=== PATIENT | female | born 1965 | race Two or more races ===

== ENCOUNTER 2017-10-26 10:35 | Emergency (ER) | payer MEDICAID, OTHER ==
[~2017-10-26] VITALS: Ht 162.6 cm; Wt 60.8 kg
[2017-10-26 11:03] VITALS: BP 117/70
[2017-10-26 13:02] LABS: Urine Bacteria FEW /hpf (None Seen); Urine Blood 2+ /uL (Negative); Urine Mucus FEW (None Seen); Urine Specific Gravity 1.022 (1.001-1.035); Urine WBC 72 /hpf (0 - 5)
[2017-10-26] MEDS: PHENAZOPYRIDINE HCL 100 MG TAB PO ONE (14:32)
== END 2017-10-26 14:41 | disposition home or self-care (01) ==
LOC: ER 10:35
DX: N39.0 Urinary tract infection, site not specified (principal)
CPT/HCPCS: 81001

== ENCOUNTER 2019-08-21 08:34 | Emergency (ER) | payer OTHER ==
[~2019-08-21] VITALS: Ht 162.6 cm; Wt 51.3 kg
[2019-08-21] MEDS ORDERED: KETOROLAC TROMETH 60MG/2ML VIAL IM ONE (09:15)
[2019-08-21 09:30] LABS: Basophils # (auto) 0 uL; Basophils % (auto) 0.8 % (0.0-2.0); Eosinophils # (auto) 0.1 uL; Eosinophils % (auto) 1.3 % (0.0-7.0); Lymphocytes # (auto) 1.3 uL; Lymphocytes % (auto) 29.4 % (10.0-50.0); Mean Corpuscular Hemoglobin 30.1 pg (28.0-32.0); Mean Corpuscular Hgb Conc. 33.3 g/dL (32.0-36.0); Mean Corpuscular Volume 90.2 fL (80.0-100.0); Monocytes # (auto) 0.4 uL; Monocytes % (auto) 8.2 % (0.0-12.0); Neutrophils # (auto) 2.7 uL; Neutrophils % (auto) 60.3 % (37.0-80.0); Nucleated Red Blood Cells % 0.1 %; Platelet Count (auto) 193 10^3/uL (140-450); Red Blood Cells 4.32 10^6/uL (4.0-5.20); Red Cell Distribution Width 15.3 % (11.8-14.3); White Blood Cell 4.4 10^3/uL (4.4-10.8)
[2019-08-21 09:48] LABS: Calcium 9.3 mg/dL (8.5-10.1); Potassium 3.6 mmol/L (3.5-5.1)
[2019-08-21 09:52] LABS: BUN/Creatinine Ratio 14.9; Bilirubin, Total 0.5 mg/dL (0.2-1.0); Total Protein 7.6 g/dL (6.4-8.2)
[2019-08-21 10:54] LABS: Urine Bacteria FEW /hpf (None Seen); Urine Blood 1+ /uL (Negative); Urine Mucus FEW (None Seen); Urine Specific Gravity 1.006 (1.001-1.035); Urine WBC 31 /hpf (0 - 5)
[2019-08-21 14:40] VITALS: BP 121/69
== END 2019-08-21 14:57 | disposition home or self-care (01) ==
LOC: ER 08:39
DX: N39.0 Urinary tract infection, site not specified (principal); M79.10 Myalgia, unspecified site; R07.81 Pleurodynia
CPT/HCPCS: 36415; 71046; 80053; 81001; 85025; 96372; 99284; J1885

== ENCOUNTER 2020-11-01 11:27 | Emergency (ER) | payer OTHER ==
[~2020-11-01] VITALS: Ht 162.6 cm; Wt 63.5 kg
[2020-11-01 11:27] VITALS: BP 144/74
[2020-11-01] MEDS ORDERED: PHENAZOPYRIDINE HCL 100 MG TAB PO ONE (12:00)
[2020-11-01 12:02] LABS: Urine Bacteria NONE SEEN /hpf (None Seen); Urine Blood 2+ /uL (Negative); Urine Mucus FEW (None Seen); Urine Specific Gravity 1.025 (1.001-1.035); Urine WBC 28 /hpf (0 - 5)
== END 2020-11-01 12:26 | disposition home or self-care (01) ==
LOC: ER 11:27
DX: N30.00 Acute cystitis without hematuria (principal)
CPT/HCPCS: 81001; 93005

== ENCOUNTER 2020-11-14 09:22 | Emergency (ER) | payer OTHER ==
[~2020-11-14] VITALS: Ht 162.6 cm; Wt 63.5 kg
[2020-11-14 10:20] LABS: Urine Bacteria NONE SEEN /hpf (None Seen); Urine Blood 2+ /uL (Negative); Urine Mucus FEW (None Seen); Urine Specific Gravity 1.028 (1.001-1.035); Urine WBC 14 /hpf (0 - 5)
[2020-11-14] MEDS ORDERED: cefTRIAXone SOD 1,000 MG VL IM ONE (11:00)
[2020-11-14] MEDS ORDERED: PHENAZOPYRIDINE HCL 100 MG TAB PO ONE (11:00)
[2020-11-14 11:17] VITALS: BP 154/64
== END 2020-11-14 11:30 | disposition home or self-care (01) ==
LOC: ER 09:22
DX: N39.0 Urinary tract infection, site not specified (principal); F41.9 Anxiety disorder, unspecified
CPT/HCPCS: 81001; 96372; 99283; J0696

== ENCOUNTER 2020-12-21 17:37 | Emergency (ER) | payer OTHER ==
[~2020-12-21] VITALS: Ht 162.6 cm; Wt 72.6 kg
[2020-12-21 17:40] VITALS: BP 132/54
[2020-12-21] MEDS ORDERED: ACETAMINOPHEN 325 MG TAB PO ONE (18:45)
[2020-12-21] MEDS ORDERED: levETIRAcetam 500 MG TAB PO ONE (20:00)
== END 2020-12-21 20:15 | disposition home or self-care (01) ==
LOC: EDBD 17:37 → ER 17:42
DX: S16.1XXA Strain of muscle, fascia and tendon at neck level, initial encounter (principal); S09.8XXA Other specified injuries of head, initial encounter; R51.9 Headache, unspecified; F41.9 Anxiety disorder, unspecified; V49.49XA Driver injured in collision with other motor vehicles in traffic accident, initial encounter; Y93.89 Activity, other specified; Y92.488 Other paved roadways as the place of occurrence of the external cause; Y99.8 Other external cause status
CPT/HCPCS: 72040

== ENCOUNTER 2021-05-07 12:10 | Emergency (ER) | payer OTHER ==
[~2021-05-07] VITALS: Ht 162.6 cm; Wt 63.5 kg
[2021-05-07 13:37] VITALS: BP 137/70
== END 2021-05-07 14:04 | disposition home or self-care (01) ==
LOC: ER 12:10
DX: J02.9 Acute pharyngitis, unspecified (principal)

== ENCOUNTER 2021-05-19 10:39 | Emergency (ER) | payer OTHER ==
[~2021-05-19] VITALS: Ht 162.6 cm; Wt 63.5 kg
[2021-05-19 10:55] VITALS: BP 145/70
[2021-05-19 12:13] LABS: Urine Bacteria NONE SEEN /hpf (None Seen); Urine Blood 2+ /uL (Negative); Urine Mucus FEW (None Seen); Urine Specific Gravity 1.034 (1.001-1.035); Urine WBC 3 /hpf (0 - 5)
[2021-05-19] MEDS ORDERED: cefTRIAXone SOD 1,000 MG VL IM ONE (13:15)
[2021-05-19] MEDS ORDERED: methylPREDNISolone SOD SUCC 125 MG/2 ML VL IM ONE (13:15)
== END 2021-05-19 13:59 | disposition home or self-care (01) ==
LOC: ER 10:39
DX: N39.0 Urinary tract infection, site not specified (principal); J02.9 Acute pharyngitis, unspecified; F41.9 Anxiety disorder, unspecified; R59.0 Localized enlarged lymph nodes
CPT/HCPCS: 81001; 96372; 99284; J0696; J2930

== ENCOUNTER 2021-12-07 08:16 | Emergency (ER) | payer OTHER ==
[~2021-12-07] VITALS: Ht 162.6 cm; Wt 65.8 kg
[2021-12-07] MEDS ORDERED: IBUP800T26 PO (11:06)
[2021-12-07] MEDS ORDERED: BACL10TA PO (11:06)
[2021-12-07 11:29] VITALS: BP 141/88
[2021-12-07] MEDS ORDERED: KETOROLAC TROMETH 60MG/2ML VIAL IM ONE (12:00)
[2021-12-07] MEDS ORDERED: AMOX500C2 PO (12:00)
[2021-12-07] MEDS ORDERED: cefTRIAXone SOD 1,000 MG VL IM ONE (12:00)
== END 2021-12-07 12:22 | disposition home or self-care (01) ==
LOC: ER 08:16
DX: H91.90 Unspecified hearing loss, unspecified ear (principal); M79.601 Pain in right arm; Z79.1 Long term (current) use of non-steroidal anti-inflammatories (NSAID); Z79.899 Other long term (current) drug therapy
CPT/HCPCS: 70450; 73030; 96372; 99284; J0696; J1885

== ENCOUNTER 2022-01-31 09:57 | Emergency (ER) | payer OTHER ==
[~2022-01-31] VITALS: Ht 162.6 cm; Wt 65.8 kg
[~2022-01-31 09:57] MED LIST: AMOX500C2 PO; BACL10TA PO; IBUP800T26 PO
[2022-01-31 10:45] LABS: Urine Bacteria FEW /hpf (None Seen); Urine Blood 2+ /uL (Negative); Urine Mucus FEW (None Seen); Urine Specific Gravity 1.027 (1.001-1.035); Urine WBC 4 /hpf (0 - 5)
[2022-01-31 12:06] VITALS: BP 138/70
[2022-01-31] MEDS ORDERED: SULF800T7 PO (12:11)
[2022-01-31] MEDS ORDERED: ACET-1158 PO (12:11)
[2022-01-31] MEDS ORDERED: cefTRIAXone SOD 1,000 MG VL IM ONE (12:30)
== END 2022-01-31 12:46 | disposition home or self-care (01) ==
LOC: ER 09:57
DX: N39.0 Urinary tract infection, site not specified (principal); Z79.2 Long term (current) use of antibiotics; Z79.1 Long term (current) use of non-steroidal anti-inflammatories (NSAID); Z79.899 Other long term (current) drug therapy; Z88.1 Allergy status to other antibiotic agents
CPT/HCPCS: 81001; 87086; 99283; J0696

== ENCOUNTER 2022-03-25 09:17 | Emergency (ER) | payer OTHER ==
[~2022-03-25] VITALS: Ht 162.6 cm; Wt 62.3 kg
[~2022-03-25 09:17] MED LIST changes: +ACET-1158 PO; +SULF800T7 PO
[2022-03-25 09:33] VITALS: BP 152/79
[2022-03-25 09:59] LABS: Urine Bacteria FEW /hpf (None Seen); Urine Blood 2+ /uL (Negative); Urine Mucus FEW (None Seen); Urine Specific Gravity 1.033 (1.001-1.035); Urine WBC 3 /hpf (0 - 5)
[2022-03-25] MEDS ORDERED: PHEN200T16 PO (10:33)
[2022-03-25] MEDS ORDERED: SULF400T11 PO (10:33)
== END 2022-03-25 10:37 | disposition home or self-care (01) ==
LOC: ER 09:17
DX: N39.0 Urinary tract infection, site not specified (principal); Z79.899 Other long term (current) drug therapy; Z79.1 Long term (current) use of non-steroidal anti-inflammatories (NSAID); Z88.1 Allergy status to other antibiotic agents
CPT/HCPCS: 81001

== ENCOUNTER 2022-04-23 10:47 | Emergency (ER) | payer OTHER ==
[~2022-04-23] VITALS: Ht 162.6 cm; Wt 62.0 kg
[~2022-04-23 10:47] MED LIST changes: +PHEN200T16 PO; +SULF400T11 PO
[2022-04-23 11:35] VITALS: BP 133/72
[2022-04-23 11:46] LABS: Urine Bacteria NONE SEEN /hpf (None Seen); Urine Blood 2+ /uL (Negative); Urine Mucus FEW (None Seen); Urine Specific Gravity 1.021 (1.001-1.035); Urine WBC 2 /hpf (0 - 5)
[2022-04-23] MEDS ORDERED: KETOROLAC TROMETH 60MG/2ML VIAL IM ONE (13:45)
[2022-04-23] MEDS ORDERED: METR500T PO (13:46)
[2022-04-23] MEDS ORDERED: CIPR-173 PO (13:46)
[2022-04-23] MEDS ORDERED: IBUP600T27 PO (13:46)
== END 2022-04-23 14:05 | disposition home or self-care (01) ==
LOC: ER 10:47
DX: M48.061 Spinal stenosis, lumbar region without neurogenic claudication (principal); N28.1 Cyst of kidney, acquired; Z88.1 Allergy status to other antibiotic agents
CPT/HCPCS: 74176; 81001; 96372; 99284; J1885

== ENCOUNTER 2022-07-12 11:27 | Emergency (ER) | payer OTHER ==
[~2022-07-12] VITALS: Ht 121.9 cm; Wt 62.0 kg
[~2022-07-12 11:27] MED LIST changes: +CIPR-173 PO; +IBUP600T27 PO; +METR500T PO
[2022-07-12 12:26] VITALS: BP 155/69
[2022-07-12] MEDS ORDERED: CEPH-510 PO ×2 (16:42→16:43)
[2022-07-12] MEDS ORDERED: AZITTAB PO ×2 (16:42→16:43)
== END 2022-07-12 18:28 | disposition home or self-care (01) ==
LOC: ER 11:27
DX: J06.9 Acute upper respiratory infection, unspecified (principal); N39.0 Urinary tract infection, site not specified; Z20.822 Contact with and (suspected) exposure to COVID-19; Z88.1 Allergy status to other antibiotic agents
CPT/HCPCS: 36415; 87426; 87804

== ENCOUNTER 2023-06-08 09:27 | Emergency (ER) | payer OTHER ==
[~2023-06-08] VITALS: Ht 162.6 cm; Wt 58.9 kg
[~2023-06-08 09:27] MED LIST changes: -ACET-1158 PO; +ACET500T58 PO; +AZITTAB PO; +CEPH-510 PO; +IBUP-1454 PO; +IBUP-1455 PO; -IBUP600T27 PO; -IBUP800T26 PO; +PHEN-922 PO; -PHEN200T16 PO; +SULF800T23 PO; -SULF800T7 PO
[2023-06-08 10:36] LABS: Urine Bacteria FEW /hpf (None Seen); Urine Blood 2+ /uL (Negative); Urine Clarity HAZY (Clear); Urine Color Yellow (Yellow); Urine Mucus FEW (None Seen); Urine Protein, UAD 1+ (Negative); Urine Specific Gravity 1.031 (1.001-1.035); Urine Urobilinogen Normal (Negative); Urine WBC 157 /hpf (0 - 5)
[2023-06-08 11:05] LABS: Basophils # (auto) 0 10 ^3/uL (0-0.2); Basophils % (auto) 0.4 % (0.0-2.0); Eosinophils # (auto) 0 10 ^3/uL (0-0.8); Eosinophils % (auto) 0.5 % (0.0-7.0); Hematocrit 41.6 % (36.0-46.0); Lymphocytes # (auto) 1.3 10 ^3/uL (0.4-5.4); Lymphocytes % (auto) 20.6 % (10.0-50.0); Mean Corpuscular Hemoglobin 32.4 pg (28.0-32.0); Mean Corpuscular Hgb Conc. 33.6 g/dL (32.0-36.0); Mean Corpuscular Volume 96.6 fL (80.0-100.0); Monocytes # (auto) 0.5 10 ^3/uL (0-1.3); Monocytes % (auto) 7.7 % (0.0-12.0); Neutrophils # (auto) 4.4 10 ^3/uL (1.6-8.6); Neutrophils % (auto) 70.8 % (37.0-80.0); Nucleated Red Blood Cells % 0.1 %; Red Blood Cells 4.31 10^6/uL (4.0-5.20); Red Cell Distribution Width 13.8 % (11.8-14.3); White Blood Cell 6.2 10^3/uL (4.4-10.8)
[2023-06-08 11:32] LABS: Alanine Aminotransferase 26 U/L (7-40); Albumin 4.4 g/dL (3.2-4.8); Alkaline Phosphatase 79 U/L (46-116); Anion Gap 5 (5-15); Aspartate Aminotransferase 9 U/L (13-40); BUN/Creatinine Ratio 21.2 (10.0-20.0); Blood Urea Nitrogen 18 mg/dL (9-23); Calcium 9.5 mg/dL (8.7-10.4); Carbon Dioxide 28 mmol/L (20-30); Chloride 107 mmol/L (98-107); Glucose 96 mg/dL (74-106); Sodium 140 mmol/L (136-145)
[2023-06-08 11:33] LABS: Bilirubin, Total 0.5 mg/dL (0.2-1.0); Total Protein 6.6 g/dL (5.7-8.2)
[2023-06-08] MEDS ORDERED: BACDST PO (12:08)
[2023-06-08 13:01] VITALS: BP 137/72; PULSE 55; RESP 16; TEMP 97.6; O2SAT 95
[2023-06-08] MEDS ORDERED: SULF400T11 PO (13:05)
== END 2023-06-08 13:02 | disposition home or self-care (01) ==
LOC: ER 09:27
DX: N39.0 Urinary tract infection, site not specified (principal); G40.909 Epilepsy, unspecified, not intractable, without status epilepticus; F41.9 Anxiety disorder, unspecified; Z88.1 Allergy status to other antibiotic agents; Z79.1 Long term (current) use of non-steroidal anti-inflammatories (NSAID); Z79.899 Other long term (current) drug therapy
CPT/HCPCS: 36415; 80053; 81001; 83735; 85025

== ENCOUNTER 2023-07-05 11:52 | Emergency (ER) | payer OTHER ==
[~2023-07-05] VITALS: Ht 162.6 cm; Wt 60.5 kg
[~2023-07-05 11:52] MED LIST changes: +BACDST PO
[2023-07-05 12:25] VITALS: BP 122/68; PULSE 120; RESP 17; O2SAT 97
== END 2023-07-05 13:46 | disposition left against medical advice (07) ==
LOC: ER 11:52
DX: J02.9 Acute pharyngitis, unspecified (principal); Z53.21 Procedure and treatment not carried out due to patient leaving prior to being seen by health care provider

== ENCOUNTER 2025-04-30 10:00 | Emergency (ER) | payer OTHER ==
[~2025-04-30] VITALS: Ht 162.6 cm; Wt 65.0 kg
--- NOTE | 2025-04-30 10:24 | ED.PDOC ---
Back pain HPI HPI Comments 59-year-old female presents to the ER with a chief complaint of back pain. Patient reports on having lower back pain bilaterally for the past three days associated with a bilateral earache and throat pain. Patient states on feeling these symptoms before when she was diagnosed with a UTI. The patient has tried hfur-xuz-bztahev treatments with no improvement. Denies any other symptoms at the moment. Denies history of chronic steroid use or history of osteoporosis Denies history of cancer Denies fevers chills night sweats nausea vomiting unintentional weight loss Denies abdominal tearing pain Denies syncope Denies urinary changes or urinary incontinence Denies numbness tingling of the groin her inner thigh Denies previous back procedures or surgeries Chief Complaint: Back Pain Time Seen by MD: 11:00 Primary Care Provider: RHETT Kam Notes: Nurses Notes, Medications, Allergies Allergies: Coded Allergies: Amoxicillin (Verified Allergy, Unknown, 01/31/22) Home Meds Active Scripts Sulfamethoxazole-Trimethoprim (Bactrim) 1 Tab Tab, 1 TAB PO BID, #20 TAB Prov:MICHAEL SANZ MD 06/08/23 Sulfamethoxazole W/Trimethopri (Bactrim Ds Tablet) 1 Tab Tb, 1 TAB PO BID for 10 Days, #20 TAB Prov:MICHAEL SANZ MD 06/08/23 Cephalexin ( Keflex 500) 500 Mg Cap, 1 CAP PO QID for 7 Days, #28 CAP 0 Refills Prov:JOSH SUN [facility] 07/12/22 Azithromycin (Zithromax Z-John) 250 Mg Tab, 250 MG PO DAILY for 5 Days, #6 TAB 0 Refills Prov:JOSH SUN [facility] 07/12/22 Ibuprofen (Ibuprofen) 600 Mg Tab, 1 TAB PO TID, #30 TAB Prov:CORIE MARTINEZ 04/23/22 Metronidazole (Flagyl) 500 Mg Tab, 500 MG PO BID, #14 TAB Prov:CORIE MARTINEZ 04/23/22 Ciprofloxacin Hcl (Cipro) 500 Mg Tab, 1 TAB PO BID, #14 TAB Prov:CORIE MARTINEZ 04/23/22 Phenazopyridine HCl (Phenazopyridine Hydrochlo) 200 Mg Tab, 200 MG PO TID, #6 TAB Prov:CORIE MARTINEZ 03/25/22 Acetaminophen (Acetaminophen) 500 Mg Tab, 500 MG PO QIDP, #30 TAB 0 Refills Prov:SAPNA CHOUDHURY KAMRAN 01/31/22 Sulfamethoxazole W/Trimethopri (Trimethoprim/Sulfamethoxa) 1 Tab Tab, 1 TAB PO BID for 7 Days, #14 TAB 0 Refills Prov:SAPNA CHOUDHURY KAMRAN 01/31/22 Amoxicillin Trihydrate (Amoxicillin) 500 Mg Cap, 1 CAP PO TID for 10 Days, #30 CAP 0 Refills Prov:LAUREN SMALLP 12/07/21 Ibuprofen Micronized (Ibuprofen) 800 Mg Tab, 800 MG PO Q8HPRN PRN for 10 Days, #30 TAB 0 Refills Prov:LAUREN SMALLP 12/07/21 Baclofen (Baclofen) 10 Mg Tab, 10 MG PO TID PRN for 7 Days, #21 TAB 0 Refills Prov:LAUREN SMALL [facility] 12/07/21 Information Source: Patient Mode of Arrival: Ambulatory Timing: Days Duration: Since onset, Days Severity: Moderate Prehospital treatment: None Quality: Aching Onset: Spontaneous History of: UTI Associated signs and symptoms: None Past Medical History PAST MEDICAL HISTORY: Anxiety, Seizures, UTI'S Surgical History: Denies all surgeries 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 Family History Family History: Reviewed,noncontributory to illness, Unknown Social History Smoker: Non-Smoker Alcohol: Denies ETOH Use Drugs: Denies Drug Use Lives In: Home Constitutional: denies: chills, diaphoresis, fatigue, fever, malaise, sweats, weakness, others EENTM: denies: blurred vision, double vision, ear bleeding, ear discharge, ear drainage, ear pain, ear ringing, eye pain, eye redness, hearing loss, mouth pain, mouth swelling, nasal discharge, nose bleeding, nose congestion, nose pain, photophobia, tearing, throat pain, throat swelling, voice changes, others Respiratory: denies: cough, hemoptysis, orthopnea, SOB at rest, shortness of breath, SOB with excertion, stridor, wheezing, others Cardiovascular: denies: chest pain, dizzy spells, diaphoresis, Dyspnea on exertion, edema, irregular heart beat, left arm pain, lightheadedness, palpitations, PND, syncope, others Gastrointestinal: denies: abdomen distended, abdominal pain, blood streaked bowels, constipated, diarrhea, dysphagia, difficulty swallowing, hematemesis, melena, nausea, poor appetite, poor fluid intake, rectal bleeding, rectal pain, vomiting, others Genitourinary: denies: abnormal vagina bleeding, burning, dyspareunia, dysuria, flank pain, frequency, hematuria, incontinence, pain, , vagina discharge, urgency, others Neurological: denies: dizziness, fainting, headache, left sided numbness, left sided weakness, numbness, paresthesia, pre-existing deficit, right sided numbness, right sided weakness, seizure, speech problems, tingling, tremors, weakness, others Musculoskeletal: reports: back pain; denies: gout, joint pain, joint swelling, muscle pain, muscle stiffness, neck pain, others Integumetry: denies: bruises, change in color, change in hair/nails, dryness, laceration, lesions, lumps, rash, wounds, others Allergic/Immunocompromised: denies: Difficulty Healing, Frequent Infections, Hives, Itching, others Hematologic/Lymphatic: denies: anemia, blood clots, easy bleeding, easy bruising, swollen glands, others Endocrine: denies: excessive hunger, excessive sweating, excessive thirst, excessive urination, flushing, intolerance to cold, intolerance to heat, unexplained weight gain, unexplained weight loss, others Psychiatric: denies: anxiety, bipolar disorder, depression, hopeless, panic disorder, schizophrenia, sleepless, suicidal, others All Other Systems: Reviewed and Negative Physical Exam Exam Comments Mild mild left ear effusion, TM is intact, no erythema or bulging, hearing is intact General Appearance: No Apparent Distress, Normal HEENT: Normal ENT Inspection, Pharynx Normal, TMs Normal Neck: Full Range of Motion, Non-Tender, Normal, Normal Inspection Respiratory: Chest Non-Tender, Lungs Clear, No Accessory Muscle Use, No Respiratory Distress, Normal Breath Sounds Cardiovascular: No Edema, No JVD, No Murmur, No Gallop, Normal Peripheral Pulses, Regular Rate/Rhythm Breast Exam: Deferred Gastrointestinal: No Organomegaly, Non Tender, No Pulsatile Mass, Normal Bowel Sounds, Soft Genitalia: Deferred Pelvic: Deferred Rectal: Deferred Extremities: No calf tenderness, Normal capillary refill, Normal inspection, Normal range of motion, Non-tender, No pedal edema Musculoskeletal : Apperance: Normal Neurologic: Alert, elevator tender II-XII nml as Tested, No Motor Deficits, Normal Affect, Normal Mood, No Sensory Deficits Cerebellar Function: Normal Reflexes: Normal Skin: Dry, Normal Color, Warm Lymphatic: No Adenopathy Was a procedure done? Was a procedure done?: No Back Pain Differential Dx Differential Diagnosis: Other X-Ray, Labs, Meds, VS Vital Signs Date Time Temp Pulse Resp B/P (MAP) Pulse Ox O2 Delivery O2 Flow Rate FiO2 04/30/25 10:03 98.7 85 18 143/78 98 98.7 Lab Test 04/30/25 12:45 Range/Units Urine Color Light-yellow Yellow Urine Clarity Clear Clear Urine pH 5.5 5.0-9.0 Urine Specific [place] 1.029 1.001-1.035 Urine Protein Negative Negative Urine Ketones Negative Negative Urine Blood 2+ H Negative /uL Urine Nitrite Negative Negative Urine Bilirubin Negative Negative Urine Urobilinogen Normal Negative mg/dL Urine Leukocyte Esterase Trace Negative /uL Urine RBC 7 0 - 4 /hpf Urine Microscopic WBC 2 0-5 /HPF Urine Squamous Epithelial Cells Few <5 /hpf Urine Bacteria None seen None Seen /hpf Urine Mucus Few None Seen Urine Glucose Normal Normal mg/dL X-Ray, Labs, Meds, VS Comment 59-year-old female presents to the ER with a chief complaint of back pain. Patient arrives alert and oriented, ABC's intact, afebrile, vital signs stable, saturating well in room air Peripheral IV insertion+ labs were ordered. Urinalysis was ordered to rule out UTI or hematuria. Patient is stable for discharge at this time. External notes reviewed. Test results and diagnostic imaging interpreted. All diagnostic findings, discharge care, education and instructions provided Follow-up with PCP in 2 to 3 days Patient verbalized understanding and agreed to treatment plan Vital signs stable, afebrile, no acute distress noted Patient ambulatory with strong steady gait Advised to return precautions for any new or worsening symptoms, return to ER immediately for re-evaluation Patient is aware that the purpose of this visit was for an acute medical emergency requiring emergent stabilization. Chronic conditions, including malignancies have not been ruled out. Patient is instructed to follow up with PCP as directed and discharge instructions for continued care and workup. If unable to arrange follow-up, patient is to return to the emergency department for reassessment. Patient (parent or legal guardian if applicable) was given verbal and written discharge instructions and acknowledges understanding. Additional MDM Review of External, Non-ED records: External records reviewed. Discussion with independent historian (EMS, family) history obtained from the patient/parents (if applicable) at bedside Chronic conditions affecting care: None Social determinants of health affecting care: None Consideration of admission (observation or admission): I considered escalation of care to admission for this patient, however given the reassuring workup, the patient is safe for outpatient management. Discussion with the Radiology: No Tests considered but not performed: Prescription medication considered but not given: 12 lead EKG interpretation: Time of 1ST Reevaluation: 11:30 Reevaluation 1ST: Unchanged Patient Education/Counseling: Diagnosis, Treatment, Prognosis Family Education/Counseling: No Family Present SEPSIS Sepsis Screen Date sepsis recognized/suspect: Apr 30, 2025 Time Sepsis recognized/suspect: 1006 Recent Procedure: No ([place]) On Antibiotic Therapy: No Respiratory Rate >20: No Heart Rate >90: No Temp<36 C (96.8 F) or >38.3 C: No SBP <90 or MAP <65 mmHG: No New Acute Mental Status Change: No Is the patient on CPAP, BIPAP,: No Vital Signs Date Time Temp Pulse Resp B/P (MAP) Pulse Ox O2 Delivery O2 Flow Rate FiO2 04/30/25 10:03 98.7 85 18 143/78 98 98.7 Departure 1 Departure Time of Disposition: 13:14 Impression: Primary Impression: Middle ear effusion Qualified Codes: H65.92 - Unspecified nonsuppurative otitis media, left ear Additional Impression: Dysuria Disposition: 01 HOME / SELF CARE / HOMELESS Condition: Stable e-Prescriptions Sulfamethoxazole-Trimethoprim (Bactrim) 1 Tab Tab 1 TAB PO BID for 5 Days, #10 TAB 0 Refills Prov: JA ROTH NP 04/30/25 Discharged With: Self Critical Care Note Critical Care Time?: No Stability Stability form required: No Heart Score Heart Score: Heart Score Response (Comments) Value History N/A 0 EKG N/A 0 Age N/A 0 Risk Factors N/A 0 Troponin N/A 0 Total 0 I personally scribed for JA ROTH NP ([email or web address]) on 04/30/25 at 10:24. Electronically submitted by Stefan [email or web address]). I personally scribed for JA ROTH NP ([employer]) on 04/30/25 at 10:33. Electronically submitted by Stefan Whitmore ([email or web address]). JA ROTH NP Apr 30, 2025 10:24
[2025-04-30 13:03] LABS: Urine Protein, UAD Negative (Negative)
[2025-04-30] MEDS ORDERED: SULF400T11 PO (13:15)
[2025-04-30 13:20] VITALS: BP 137/86; PULSE 78; RESP 16; TEMP 98.7; O2SAT 97
== END 2025-04-30 13:22 | disposition home or self-care (01) ==
LOC: ER 10:00
DX: H65.92 Unspecified nonsuppurative otitis media, left ear (principal); M54.50 Low back pain, unspecified; R07.0 Pain in throat; F41.9 Anxiety disorder, unspecified; Z87.440 Personal history of urinary (tract) infections; Z88.0 Allergy status to penicillin; Z79.899 Other long term (current) drug therapy
CPT/HCPCS: 81001

== ENCOUNTER 2025-07-01 09:22 | Emergency (ER) | payer OTHER ==
[~2025-07-01] VITALS: Ht 162.6 cm; Wt 61.6 kg
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
--- NOTE | 2025-07-01 11:25 | DVH ---
CLINICAL INDICATION: Pain; r/o fracture TECHNIQUE: 3 radiographic views of the left wrist were obtained. Comparison: None FINDINGS/IMPRESSION: There is no evidence of acute fracture or dislocation. The visualized joint space is well maintained. The alignment is anatomical. There is no radiopaque foreign body.
[2025-07-01] MEDS ORDERED: IBUP1TAB5 PO (12:03)
[2025-07-01] MEDS: KETOROLAC TROMETH 30 MG/ML 1ML VIAL IM ONE (12:23)
[2025-07-01 12:45] VITALS: BP 134/68; PULSE 78; RESP 16; TEMP 98.7; O2SAT 97
== END 2025-07-01 12:46 | disposition home or self-care (01) ==
LOC: ER 09:22
DX: S63.502A Unspecified sprain of left wrist, initial encounter (principal); Z88.0 Allergy status to penicillin; W19.XXXA Unspecified fall, initial encounter; Y93.89 Activity, other specified; Y92.89 Other specified places as the place of occurrence of the external cause; Y99.8 Other external cause status
CPT/HCPCS: 73110; 96372; 99283; J1885